=== PATIENT | female | born 1990 | race Asian ===

== ENCOUNTER 2018-10-18 16:51 | Emergency (ER) | payer SELFPAY ==
[2018-10-18 18:35] LABS: Absolute Lymphocytes (CBC) 1.9 K/uL (0.7-4.9); Absolute Monocytes 0.5 K/uL (0.1-1.3); Absolute Neutrophil 4.4 K/uL (1.8-8.0); Basophils % 0.4 % (0-1.3); Eosinophils % 3.2 % (0-4.4); Hematocrit 40.4 % (36.0-45.0); MCV 98.3 fL (80-100); MPV 9.1 fL (7.6-11.3); Monocytes % 6.7 % (3.3-12.3); RBC Red Blood Cell Count 4.11 M/uL (3.86-4.86)
--- NOTE | 2018-10-18 19:06 | ER ---
Nurse's Notes [facility] Name: Palmira Angel Age: 28 yrs Sex: Female : 1990 Arrival Date: 10/18/2018 Time: 16:54 Bed 8 Private MD: Diagnosis: related conditions, unspecified, first trimester Presentation: 10/18 17:16 Acuity: MARITZA 3 sg 17:20 Presenting complaint: Patient states: Pelvic pain for 2-days, worsening today, reports hb decrease in appetite over the last several day, denies N/V/D report having pain. Transition of care: patient was not received from another setting of care. Onset of symptoms was October 18, 2018. Risk Assessment: Do you want to hurt yourself or someone else? Patient reports no desire to harm self or others. Initial Sepsis Screen: Does the patient meet any 2 criteria? No. Patient's initial sepsis screen is negative. Does the patient have a suspected source of infection? No. Patient's initial sepsis screen is negative. Care prior to arrival: None. 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 - Social history:: Smoking status: Patient/guardian denies using tobacco. - Family history:: not pertinent. - Ebola Screening: : Patient negative for fever greater than or equal to 101.5 degrees Fahrenheit, and additional compatible Ebola Virus Disease symptoms Patient denies exposure to infectious person Patient denies travel to an Ebola-affected area in the 21 days before illness onset No symptoms or risks identified at this time. Screenin:04 Abuse screen: Denies threats or abuse. Denies injuries from another. Nutritional ph screening: No deficits noted. Tuberculosis screening: No symptoms or risk factors identified. Fall Risk None identified. Assessment: 18:02 General: Appears in no apparent distress. comfortable, slender, well groomed, Behavior ph is calm, cooperative, appropriate for age, Denies fever, feeling ill. Pain: Complains of pain in suprapubic area, right lower quadrant and left lower quadrant Pain currently is 2 out of 10 on a pain scale. Quality of pain is described as crampy. Neuro: Level of Consciousness is awake, alert, obeys commands, Oriented to person, place, time, situation. Cardiovascular: Capillary refill < 3 seconds in bilateral fingers Patient's skin is warm and dry. Respiratory: Airway is patent Respiratory effort is even, unlabored, Respiratory pattern is regular, symmetrical. GI: Abdomen is flat, non-distended, Bowel sounds present X 4 quads. Reports lower abdominal pain, cramping, nausea, vomiting, since yesterday, denies nausea at this time also reports decreased appetitie. : Denies burning with urination, urinary frequency. Derm: Skin is intact, Skin is pink, warm \T\ dry. Musculoskeletal: Circulation, motion, and sensation intact. Range of motion: intact in all extremities. 18:15 Reassessment: Pt c/o intense pain to IV site, IV d/c,. will attempt another after US. ph 19:00 General: Appears in no apparent distress. comfortable, Behavior is calm, cooperative, rr5 appropriate for age, Denies fever. Pain: Complains of pain in right and left lower quadrant pain Pain currently is 2 out of 10 on a pain scale. Quality of pain is described as crampy, Pain began gradually, Is intermittent. Neuro: Level of Consciousness is awake, alert, obeys commands, Oriented to person, place, time, situation. Cardiovascular: Capillary refill < 3 seconds Patient's skin is warm and dry. Respiratory: Airway is patent Respiratory effort is even, unlabored, Respiratory pattern is regular, symmetrical. GI: Abdomen is flat, non-distended, Bowel sounds present X 4 quads. Reports lower abdominal pain, cramping, nausea. : Denies burning with urination. EENT: No signs and/or symptoms were reported regarding the EENT system. Derm: Skin is intact, Skin is pink, warm \T\ dry. Musculoskeletal: Circulation, motion, and sensation intact. Range of motion: intact in all extremities. 19:27 Reassessment: patient is discharge waiting for fluid bolus to consume. rr5 20:28 Reassessment: Patient appears in no apparent distress at this time. Patient and/or rr5 family updated on plan of care and expected duration. Pain level reassessed. Patient states feeling better. Patient states symptoms have improved. 20:50 Reassessment: NS bolus infusion completed. discharge instruction and prescription rr5 explained with no complaints made. vitally stable. Vital Signs: 17:20 BP 127 / 77; Pulse 101; Resp 17; Temp 98.1; Pulse Ox 98% on R/A; Pain 7/10; hb 18:01 BP 100 / 63; Pulse 76; Resp 18; Pulse Ox 99% on R/A; Pain 3/10; ph 19:00 BP 101 / 63; Pulse 67; Resp 16; Temp 98; Pulse Ox 100% on R/A; rr5 20:50 BP 102 / 75; Pulse 65; Resp 16; Pulse Ox 99% on R/A; rr5 ED Course: 16:54 Patient arrived in ED. as 17:03 Salvatore Fang MD is Attending Physician. pantera 17:15 Arm band placed on. sg 17:16 Triage completed. sg 17:26 Terra Rubalcava, RN is Primary Nurse. ph 17:30 Inserted saline lock: 20 gauge in right antecubital area, using aseptic technique. ph Blood collected. 18:05 Patient has correct armband on for positive identification. Bed in low position. Call ph light in reach. Side rails up X 1. Pulse ox on. NIBP on. Warm blanket given. 18:05 No provider procedures requiring assistance completed. ph 19:04 Inserted saline lock: 22 gauge in left antecubital area, using aseptic technique. jb1 19:18 Colten Fonseca [facility] m Administered Medications: 19:15 Drug: NS 0.9% 1000 ml Route: IV; Rate: 1 bolus; Site: left antecubital; rr5 20:49 Follow up: Response: No adverse reaction; IV Status: Completed infusion; IV Intake: rr5 1000ml 19:15 Drug: Zofran 2 mg Route: IVP; Site: left antecubital; rr5 20:49 Follow up: Response: No adverse reaction; Marked relief of symptoms rr5 20:49 Not Given (relieved from nausea): Zofran 2 mg IVP once; over 2 minutes rr5 Intake: 20:49 IV: 1000ml; Total: 1000ml. rr5 Outcome: 19:04 Discharge ordered by . pantera 21:03 Patient left the ED. rr5 Signatures: Hossein Subramanian [email or web address] Shawn Franklin RN RN Salvatore Kim MD MD cha Mickail, Joel, PA PA jmm Martinez, Amelia as Hall, Patricia, RN RN Cici Kwan RN RN John Ivan RN RN rr5 Corrections: (The following items were deleted from the chart) 20:28 20:27 Reassessment: patient is discharge waiting for fluid bolus to consume. rr5 rr5
--- NOTE | 2018-10-18 19:06 | EDPHYS ---
Physician Documentation [facility] Name: Palmira Angel Age: 28 yrs Sex: Female : 1990 Arrival Date: 10/18/2018 Time: 16:54 Bed 8 Private MD: ED Physician Salvatore Fang HPI: 10/18 17:24 This 28 yrs old Female presents to ER via Unassigned with complaints of Pelvic pantera Pain - 6 Wks Preg, Decreased Appetite. 17:24 The patient presents to the emergency department with possible uterine contractions, pantera this morning, today, abdominal pain, of the suprapubic area, right lower quadrant and left lower quadrant. The estimated gestational age is 5 weeks. course: care: none. Associated signs and symptoms: The patient has no apparent associated signs or symptoms. The patient has experienced a previous episode, approximately 3 years ago. 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 - Social history:: Smoking status: Patient/guardian denies using tobacco. - Family history:: not pertinent. - Ebola Screening: : Patient negative for fever greater than or equal to 101.5 degrees Fahrenheit, and additional compatible Ebola Virus Disease symptoms Patient denies exposure to infectious person Patient denies travel to an Ebola-affected area in the 21 days before illness onset No symptoms or risks identified at this time. ROS: 17:24 Constitutional: Negative for fever, chills, and weight loss, Eyes: Negative for injury, pnatera pain, redness, and discharge, ENT: Negative for injury, pain, and discharge, Neck: Negative for injury, pain, and swelling, Cardiovascular: Negative for chest pain, palpitations, and edema, Respiratory: Negative for shortness of breath, cough, wheezing, and pleuritic chest pain, Abdomen/GI: Negative for abdominal pain, nausea, vomiting, diarrhea, and constipation, Back: Negative for injury and pain, MS/Extremity: Negative for injury and deformity, Skin: Negative for injury, rash, and discoloration, Neuro: Negative for headache, weakness, numbness, tingling, and seizure, Psych: Negative for depression, anxiety, suicide ideation, homicidal ideation, and hallucinations, Allergy/Immunology: Negative for hives, rash, and allergies, Endocrine: Negative for neck swelling, polydipsia, polyuria, polyphagia, and marked weight changes, Hematologic/Lymphatic: Negative for swollen nodes, abnormal bleeding, and unusual bruising. 17:24 : Positive for pelvic pain. Exam: 17:24 Constitutional: This is a well developed, well nourished patient who is awake, alert, pantera and in no acute distress. Head/Face: Normocephalic, atraumatic. Eyes: Pupils equal round and reactive to light, extra-ocular motions intact. Lids and lashes normal. Conjunctiva and sclera are non-icteric and not injected. Cornea within normal limits. Periorbital areas with no swelling, redness, or edema. ENT: Nares patent. No nasal discharge, no septal abnormalities noted. Tympanic membranes are normal and external auditory canals are clear. Oropharynx with no redness, swelling, or masses, exudates, or evidence of obstruction, uvula midline. Mucous membranes moist. Neck: Trachea midline, no thyromegaly or masses palpated, and no cervical lymphadenopathy. Supple, full range of motion without nuchal rigidity, or vertebral point tenderness. No Meningismus. Chest/axilla: Normal chest wall appearance and motion. Nontender with no deformity. No lesions are appreciated. Cardiovascular: Regular rate and rhythm with a normal S1 and S2. No gallops, murmurs, or rubs. Normal PMI, no JVD. No pulse deficits. Respiratory: Lungs have equal breath sounds bilaterally, clear to auscultation and percussion. No rales, rhonchi or wheezes noted. No increased work of breathing, no retractions or nasal flaring. Abdomen/GI: Soft, non-tender, with normal bowel sounds. No distension or tympany. No guarding or rebound. No evidence of tenderness throughout. Back: No spinal tenderness. No costovertebral tenderness. Full range of motion. Skin: Warm, dry with normal turgor. Normal color with no rashes, no lesions, and no evidence of cellulitis. MS/ Extremity: Pulses equal, no cyanosis. Neurovascular intact. Full, normal range of motion. Neuro: Awake and alert, GCS 15, oriented to person, place, time, and situation. Cranial nerves II-XII grossly intact. Motor strength 5/5 in all extremities. Sensory grossly intact. Cerebellar exam normal. Normal gait. Psych: Awake, alert, with orientation to person, place and time. Behavior, mood, and affect are within normal limits. Vital Signs: 17:20 BP 127 / 77; Pulse 101; Resp 17; Temp 98.1; Pulse Ox 98% on R/A; Pain 7/10; hb 18:01 BP 100 / 63; Pulse 76; Resp 18; Pulse Ox 99% on R/A; Pain 3/10; ph 19:00 BP 101 / 63; Pulse 67; Resp 16; Temp 98; Pulse Ox 100% on R/A; rr5 20:50 BP 102 / 75; Pulse 65; Resp 16; Pulse Ox 99% on R/A; rr5 MDM: 17:[address] [facility] 17:27 Data reviewed: vital signs, nurses notes, lab test result(s), radiologic studies, pantera ultrasound. 10/18 17:24 Order name: Quantitative Hcg [facility] 10/18 17:24 Order name: Basic Metabolic Panel [facility] 10/18 17:24 Order name: CBC with Diff [facility] 10/18 18:15 Order name: Urine Dipstick--Ancillary (enter results) 10/18 18:15 Order name: Urine --Ancillary (enter results) 10/18 18:38 Order name: CBC with Automated Diff; Complete Time: 18:52 [facility] 10/18 19:44 Order name: Basic Metabolic Panel; Complete Time: 19:46 [facility] 10/18 19:44 Order name: HCG, Quantitative; Complete Time: 19:46 [facility] 10/18 19:45 Order name: Urine --Ancillary; Complete Time: 19:46 [facility] 10/18 19:45 Order name: Urine Dipstick-Ancillary; Complete Time: 19:46 [facility] 10/18 19:58 Order name: ABO/RH typing; Complete Time: 20:23 [facility] 10/18 20:07 Order name: ABO/RH no charge; Complete Time: 20:23 [facility] 10/18 17:24 Order name: Urine Test (obtain specimen); Complete Time: 18:06 [facility] 10/18 17:24 Order name: IV Saline Lock; Complete Time: 18:06 [facility] 10/18 17:24 Order name: Labs collected and sent; Complete Time: 18:06 [facility] 10/18 17:24 Order name: NPO; Complete Time: 18:06 [facility] 10/18 17:24 Order name: Urine Dipstick-Ancillary (obtain specimen); Complete Time: 18:06 [facility] 10/18 17:24 Order name: US Transvaginal Ob [facility] 10/18 19:45 Order name: US; Complete Time: 19:46 EDMS Administered Medications: 19:15 Drug: NS 0.9% 1000 ml Route: IV; Rate: 1 bolus; Site: left antecubital; rr5 20:49 Follow up: Response: No adverse reaction; IV Status: Completed infusion; IV Intake: rr5 1000ml 19:15 Drug: Zofran 2 mg Route: IVP; Site: left antecubital; rr5 20:49 Follow up: Response: No adverse reaction; Marked relief of symptoms rr5 20:49 Not Given (relieved from nausea): Zofran 2 mg IVP once; over 2 minutes rr5 Disposition: 10/18/18 19:04 Discharged to Home. Impression: related conditions, unspecified, first trimester. - Condition is Stable. - Discharge Instructions: Abdominal Pain During , First Trimester of , Ouwb-jg-[id number], First Trimester of , Abdominal Pain During , Zjuu-er-Eczz, Pelvic Rest. - Prescriptions for Vitamin 27- 0.8 mg Oral Tablet - take 1 tablet by ORAL route once daily; 30 tablet. Diclegis 10- 10 mg Oral tablet,delayed release (DR/EC) - take 1 tablet by ORAL route 3 times per day and 2 tablets at bedtime; 60 tablet. Cephalexin 500 mg Oral Capsule - take 1 capsule by ORAL route every 12 hours for 10 days; 20 capsule. - Medication Reconciliation Form, Thank You Letter, Antibiotic Education, Prescription Opioid Use form. - Follow up: Private Physician; When: 2 - 3 days; Reason: Recheck today's complaints, Continuance of care, Re-evaluation by your physician. - Problem is new. - Symptoms have improved. Signatures: Dispatcher [employer] EDMS Salvatore Fang MD MD cha Mickail, Joel, PA PA jmm Baxter, Heather, RN RN John Ivan RN RN rr5 Corrections: (The following items were deleted from the chart) 21:03 19:04 10/18/2018 19:04 Discharged to Home. Impression: related conditions, rr5 unspecified, first trimester. Condition is Stable. Discharge Instructions: Abdominal Pain During , First Trimester of , Xfrz-bv-Hohw, First Trimester of , Abdominal Pain During , Xfob-su-Tbsh, Pelvic Rest. Prescriptions for Vitamin 27-0.8 mg Oral Tablet - take 1 tablet by ORAL route once daily; 30 tablet. and Forms are Medication Reconciliation Form, Thank You Letter, Antibiotic Education, Prescription Opioid Use. Follow up: Private Physician; When: 2 - 3 days; Reason: Recheck today's complaints, Continuance of care, Re-evaluation by your physician. Problem is new. Symptoms have improved. pantera
[2018-10-18 19:13] LABS: BUN Blood Urea Nitrogen 10 mg/dL (7-18); Bicarbonate 22 mmol/L (21-32); Glucose Level 85 mg/dL (74-106); HCG, Quantitative 39328 mIU/mL (1-3); Potassium 3.6 mmol/L (3.5-5.1); Sodium Level 138 mmol/L (136-145)
[2018-10-18] MEDS ORDERED: ONDANSETRON 4 MG/2 ML VIAL ONE (19:14)
[2018-10-18] MEDS ORDERED: NA CHLORIDE 0.9% 1,000 ML ONE (19:14)
[2018-10-18 19:18] LABS: Urine Blood 1+ (NEG); Urine Glucose NEGATIVE (NEG); Urine Protein NEGATIVE (NEG); Urine Specific Gravity >1.030 (1.005-1.030)
--- NOTE | 2018-10-18 19:21 | RAD REPORT ---
EXAM DESCRIPTION: US - Transvaginal OB - 10/18/2018 7:03 pm CLINICAL HISTORY: PAIN COMPARISON: No comparisons FINDINGS: A single gestational sac is seen within the uterus. The shape of the sac is within normal limits for gestational age. Within the sac is a single pole with crown-rump length of 5 mm, cor relating to estimated gestational age of 6 weeks 2 days. Estimated date of delivery is 06/11/2019. Heart rate is 127 BPM.. The placenta is not yet developed due to early gestational age. The maternal adnexa and ovaries are within normal limits. Normal Doppler blood flow was demonstrated to both ovaries. IMPRESSION: Single live early intrauterine gestation with estimated gestational age of 6 weeks 2 day s, MATT 06/11/2019. No unusual or unexpected finding.
== END 2018-10-18 21:03 | disposition home or self-care (01) ==
LOC: ER 16:51
DX: O26.891 Other specified pregnancy related conditions, first trimester (principal); R10.2 Pelvic and perineal pain; R10.31 Right lower quadrant pain; R10.32 Left lower quadrant pain; Z3A.01 Less than 8 weeks gestation of pregnancy
CPT/HCPCS: 36415; 76817; 80048; 81003; 81025; 84702; 85025; 86900; 86901; 87086; 87088; 96361; 96374; 99284; J2405; J7030

== ENCOUNTER 2019-11-06 10:14 | Emergency (ER) | payer BC ==
--- NOTE | 2019-11-06 12:44 | EDPHYS ---
Physician Documentation [facility] Name: Palmira Etses Age: 29 yrs Sex: Female : 1990 Arrival Date: 11/06/2019 Time: 10:16 Bed 15 Private MD: ED Physician Kota Ramos HPI: 11/06 10:38 This 29 yrs old Female presents to ER via Ambulatory with complaints of Breast jmm Problem. 10:38 The patient or guardian reports chest pain that is located primarily in the left nipple jmm and left breast. The pain does not radiate. The chest pain is described as aching. This is a 29 year old female with no chronic medical conditions that presents to the ED with complaints of left breast pain and swelling. Patient denies redness or streaking. Denies fever. . 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 - Social history:: Smoking status: Patient/guardian denies using tobacco. - Ebola Screening: : Patient negative for fever greater than or equal to 101.5 degrees Fahrenheit, and additional compatible Ebola Virus Disease symptoms Patient denies exposure to infectious person Patient denies travel to an Ebola-affected area in the 21 days before illness onset No symptoms or risks identified at this time. ROS: 10:38 Constitutional: Negative for fever, chills, and weight loss, Cardiovascular: Negative jmm for chest pain, palpitations, and edema, Respiratory: Negative for shortness of breath, cough, wheezing, and pleuritic chest pain. Exam: 10:38 Constitutional: This is a well developed, well nourished patient who is awake, alert, jmm and in no acute distress. Head/Face: atraumatic. Eyes: EOMI, no conjunctival erythema appreciated ENT: Moist Mucus Membranes Neck: Trachea midline, Supple 10:38 Cardiovascular: Regular rate and rhythm. No edema appreciated Respiratory: Normal jmm respirations, no respiratory distress appreciated Abdomen/GI: Non distended, soft Back: Normal ROM Skin: General appearance color normal MS/ Extremity: Moves all extremities, no obvious deformities appreciated, no edema noted to the lower extremities Neuro: Awake and alert, normal gait Psych: Behavior is normal, Mood is normal, Patient is cooperative and pleasant 10:38 Neck: left breast is firm and tender to palpation medially, no erythema appreciated. Vital Signs: 10:27 BP 101 / 59; Pulse 84; Resp 16; Temp 97.7; Pulse Ox 100% on R/A; Weight 50.8 kg; Height iw 5 ft. 2 in. (157.48 cm); Pain 6/10; 12:39 BP 116 / 68; Pulse 79; Resp 17 S; Pulse Ox 100% on R/A; ca1 10:27 Body Mass Index 20.48 (50.80 kg, 157.48 cm) iw MDM: 10:38 Patient medically screened. [facility] 12:41 Data reviewed: vital signs, nurses notes. ED course: After pumping there left breast is jmm softer on reevaluation. Patient continues to have pain. Possible early mastitidis is suspected. Will treat with oral abx and advised to follow up with obgyn. patient is otherwise given strict return precautions. patient understood and agrees with the plan of care. . 12 10:47 Order name: Misc. Order: breast pump; Complete Time: 11:47 [facility] Administered Medications: No medications were administered Disposition: 15:00 Co-signature as Attending Physician, Kota Ramos MD. rn Disposition: 11/06/19 12:44 Discharged to Home. Impression: Nonpurulent mastitis associated with . - Condition is Stable. - Discharge Instructions: Challenges and Solutions, Mastitis, and Mastitis. - Prescriptions for Dicloxacillin 500 mg Oral Capsule - take 1 capsule by ORAL route every 6 hours for 10 days; 40 capsule. Ibuprofen 800 mg Oral Tablet - take 1 tablet by ORAL route every 12 hours As needed take with food; 20 tablet. - Medication Reconciliation Form, Thank You Letter, Antibiotic Education, Prescription Opioid Use form. - Follow up: Kashif Gaines MD; When: 2 - 3 days; Reason: Recheck today's complaints, Continuance of care, Re-evaluation by your physician. Follow up: Margareth Tapia MD; When: 2 - 3 days; Reason: Recheck today's complaints, Continuance of care, Re-evaluation by your physician. Signatures: Colten Fonseca PA PA jmm Williams, Irene, RN RN iw Kota Ramos MD MD rn Acob, NGOC Treviño RN ca1 Corrections: (The following items were deleted from the chart) 13:03 12:44 11/06/2019 12:44 Discharged to Home. Impression: Nonpurulent mastitis associated ca1 with . Condition is Stable. Forms are Medication Reconciliation Form, Thank You Letter, Antibiotic Education, Prescription Opioid Use. Follow up: Kashif Gaines; When: 2 - 3 days; Reason: Recheck today's complaints, Continuance of care, Re-evaluation by your physician. Follow up: Margareth Tapia; When: 2 - 3 days; Reason: Recheck today's complaints, Continuance of care, Re-evaluation by your physician. dax
--- NOTE | 2019-11-06 12:44 | ER ---
Nurse's Notes [facility]ly [facility] Name: Palmira Estes Age: 29 yrs Sex: Female : 1990 Arrival Date: 11/06/2019 Time: 10:16 Bed 15 Private MD: Diagnosis: Nonpurulent mastitis associated with Presentation: 11/06 10:25 Presenting complaint: Patient states: left breast pain, redness around nipple since iw last night, breast feeding, thinks she has a clogged duct, denies red streaking or fever. Transition of care: patient was not received from another setting of care. Onset of symptoms was November 05, 2019. Risk Assessment: Do you want to hurt yourself or someone else? Patient reports no desire to harm self or others. Initial Sepsis Screen: Does the patient meet any 2 criteria? No. Patient's initial sepsis screen is negative. Does the patient have a suspected source of infection? No. Patient's initial sepsis screen is negative. Care prior to arrival: None. 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 - Social history:: Smoking status: Patient/guardian denies using tobacco. - Ebola Screening: : Patient negative for fever greater than or equal to 101.5 degrees Fahrenheit, and additional compatible Ebola Virus Disease symptoms Patient denies exposure to infectious person Patient denies travel to an Ebola-affected area in the 21 days before illness onset No symptoms or risks identified at this time. Screenin:32 Abuse screen: Denies threats or abuse. Denies injuries from another. Nutritional ca1 screening: No deficits noted. Tuberculosis screening: No symptoms or risk factors identified. Fall Risk None identified. Assessment: 10:32 General: Appears in no apparent distress. comfortable, Behavior is calm, cooperative, ca1 appropriate for age. Pain: Complains of pain in left breast Pain currently is 9 out of 10 on a pain scale. Quality of pain is described as burning, heavy, Pain began 1 day ago. L breast is engorged, distended, warm and tender to touch. Pt reports unable to let down breastmilk with breast feeding and breast pump. Is continuous. Neuro: Level of Consciousness is awake, alert, obeys commands, Oriented to person, place, time, situation, Appropriate for age. Cardiovascular: Heart tones S1 S2 present Capillary refill < 3 seconds Patient's skin is warm and dry. Respiratory: Airway is patent Respiratory effort is even, unlabored, Respiratory pattern is regular, symmetrical, Breath sounds are clear bilaterally. GI: Abdomen is flat, non-distended, Bowel sounds present X 4 quads. Abd is soft and non tender X 4 quads. : No deficits noted. No signs and/or symptoms were reported regarding the genitourinary system. EENT: No deficits noted. No signs and/or symptoms were reported regarding the EENT system. Derm: Skin is intact, is healthy with good turgor, Skin is pink, warm \\T\\ dry. Musculoskeletal: Circulation, motion, and sensation intact. Capillary refill < 3 seconds, Range of motion: intact in all extremities. 11:27 Reassessment: Patient appears in no apparent distress at this time. Patient is alert, ca1 oriented x 3, equal unlabored respirations, skin warm/dry/pink. Pt pumping breast milk from L breast. Pt states, "there's milk coming out but not from the clogged duct". I still feel sore. 11:33 Reassessment: Breast pump at bedside. Warm compress applied. ca1 12:39 Reassessment: Patient appears in no apparent distress at this time. Patient is alert, ca1 oriented x 3, equal unlabored respirations, skin warm/dry/pink. pt reports, "it is still there, the clog but I think the heaviness is getting better. It's not as distended anymore". Breast softer to touch, still warm and tender. Instructed on continued hot compress and breast pump. Vital Signs: 10:27 BP 101 / 59; Pulse 84; Resp 16; Temp 97.7; Pulse Ox 100% on R/A; Weight 50.8 kg; Height iw 5 ft. 2 in. (157.48 cm); Pain 6/10; 12:39 BP 116 / 68; Pulse 79; Resp 17 S; Pulse Ox 100% on R/A; ca1 10:27 Body Mass Index 20.48 (50.80 kg, 157.48 cm) ED Course: 10:16 Patient arrived in ED. mr 10:26 Triage completed. iw 10:28 Arm band placed on. 10:29 Colten Fonseca PA is PHCP. [facility] 10:29 Kota Ramos MD is Attending Physician. [facility] 10:29 Kamila Fields, RN is Primary Nurse. ca1 10:32 Patient has correct armband on for positive identification. Bed in low position. Call ca1 light in reach. Side rails up X 1. Pulse ox on. NIBP on. Warm blanket given. 10:32 No provider procedures requiring assistance completed. Patient did not have IV access ca1 during this emergency room visit. 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 [facility] 10:50 WARM COMPRESS TO LEFT BREAST. [facility] 12:43 Kashif Gaines MD is Referral Physician. [facility] 12:43 Margareth Tapia MD is Referral Physician. [facility] Administered Medications: No medications were administered Outcome: 12:44 Discharge ordered by MD. [facility] 13:02 Discharged to home ambulatory, with family. ca1 13:02 Condition: stable 13:02 Discharge instructions given to patient, Instructed on discharge instructions, follow up and referral plans. medication usage, Demonstrated understanding of instructions, follow-up care, medications, Prescriptions given X 2. 13:03 Patient left the ED. ca1 Signatures: Colten Fonseca PA PA jmm Rivera, Mary mr ValdesRosaura, NGOC GROSSMAN Jany Saha [facility] Kamila Fields, NGOC RN ca1 Corrections: (The following items were deleted from the chart) 12:03 11:27 Reassessment: Patient appears in no apparent distress at this time. Patient is ca1 alert, oriented x 3, equal unlabored respirations, skin warm/dry/pink. ca1
[2019-11-06 13:22] VITALS: TEMP 97.7; O2SAT 100
[2019-11-06 13:23] VITALS: BP 116/68
== END 2019-11-06 13:03 | disposition home or self-care (01) ==
LOC: ER 10:14
DX: O91.23 Nonpurulent mastitis associated with lactation (principal)
CPT/HCPCS: 99283